=== PATIENT | female | born 1940 | race Asian ===

== ENCOUNTER 2021-02-01 18:09 | Emergency (ER) | payer OTHER ==
[2021-02-01 18:28] VITALS: BP 168/85; PULSE 68; TEMP 99.5; BMI 21.2
[2021-02-01] MEDS ORDERED: ACETAMINOPHEN 1000 MG/100 ML VIAL (NON FORMULARY) IVPB ONE (19:43)
[2021-02-01] MEDS ORDERED: LIDOCAINE 5% TOPICAL PATCH TP ONE (20:11)
[2021-02-01] MEDS ORDERED: ACETAMINOPHEN INJECTION 100 ML IVPB ONE (20:28)
[2021-02-01 20:45] LABS: BASO % 0.5 % (0-2.0); EOS % 0.9 % (0-4.5); HEMATOCRIT 32.2 % (32.4-45.2); HEMOGLOBIN 11.3 GM/dL (10.7-15.3); LYMPH % 44.4 % (8-40); MCH 33.9 pg (25.7-33.7); MCHC 35.2 g/dl (32.0-36.0); MEAN CELL VOLUME 96.2 fl (80-96); MONO % 5.4 % (3.8-10.2); NEUT % 48.8 % (42.8-82.8); RBC 3.35 M/mm3 (3.60-5.2); RDW 13.6 % (11.6-15.6); WHITE BLOOD COUNT 7.5 K/mm3 (4.0-10.0)
[2021-02-01 21:04] LABS: CHLORIDE 107 mmol/L (98-107); SODIUM 140 mmol/L (136-145)
[2021-02-01 21:05] LABS: CALCIUM 9.2 mg/dL (8.5-10.1)
[2021-02-01 21:06] LABS: ALBUMIN 3.6 g/dl (3.4-5.0); ANION GAP 8 MMOL/L (8-16); BLOOD UREA NITROGEN 21.9 mg/dL (7-18); CO2 25 mmol/L (21-32); GLUCOSE,RANDOM 117 mg/dL (74-106)
[2021-02-01 21:10] LABS: SGOT/AST 38 U/L (15-37); SGPT/ALT 20 U/L (13-61)
[2021-02-01 21:13] LABS: ALK PHOS 43 U/L (45-117)
[2021-02-01] MEDS ORDERED: LIDOCAINE 5% TOPICAL PATCH ONE (21:56)
[2021-02-01] MEDS ORDERED: LIDOCAINE PATCH REMOVAL MC ONE (22:00)
[2021-02-01 22:23] LABS: PLATELET ESTIMATE NORMAL
[2021-02-01 22:25] LABS: MEAN PLT VOLUME 9.2 fl (7.5-11.1); PLATELET COUNT 238 10^3/uL (134-434)
[2021-02-01 22:48] LABS: CALCIUM 9.3 mg/dL (8.5-10.1)
[2021-02-01 22:51] LABS: CREATININE 0.9 mg/dL (0.55-1.3)
== END 2021-02-02 00:56 | disposition left against medical advice (07) ==
LOC: JER 18:09
PROC: 3E033NZ Introduction of Analgesics, Hypnotics, Sedatives into Peripheral Vein, Percutaneous Approach (ICD-10-PCS; principal; 2021-02-01)
DX: M54.5 Low back pain (principal); R42 Dizziness and giddiness; R03.0 Elevated blood-pressure reading, without diagnosis of hypertension
CPT/HCPCS: 36415; 70450-TC; 71045-TC-FY; 80048; 80053; 82550; 82553; 84484; 85025; 93005; 93010; 99284-25; C9803; J0131; U0003; U0005